=== PATIENT | female | born 1960 | race Caucasian/White ===

== ENCOUNTER → 2021-04-10 13:44 | Outpatient (CLI) | payer OTHER, SELFPAY ==
[2021-04-10 14:30] LABS: Add Manual Diff / Slide Review NO; Basophils Absolute Auto 0 /uL (0-100); Basophils Percent Auto 0.6 % (0-2); Eosinophils Absolute Auto 0 /uL (0-450); Hematocrit 37.9 % (36-46); Hemoglobin 12.6 g/dL (12.0-16.0); Lymphocytes Absolute Auto 1800 /uL (1100-4500); Lymphocytes Percent Auto 31.6 % (25-40); Mean Corpuscular HGB Conc 33.1 % (30-36); Mean Corpuscular Hemoglobin 31.8 PG (26-34); Mean Corpuscular Volume 95.8 fL (80-100); Monocytes Absolute Auto 500 /uL (0-900); Monocytes Percent Auto 8.7 % (3-14); Neutrophils Absolute Auto 3300 /uL (1500-7000); Neutrophils Percent Auto 59.1 % (50-75); Platelet Count 233 X10^3/uL (150-400); Red Blood Cell Count 3.96 X10^6/uL (4.0-5.2); Red Cell Distribution Width 13.6 % (11.6-14.8); White Blood Cell Count 5.6 X10^3/uL (4.5-11.0)
[2021-04-10 15:02] LABS: Erythrocyte Sedimentation Rate 34 MM/HR (0-20)
[2021-04-10 15:33] LABS: Alanine Aminotransferase 18 IU/L (<35); Albumin 4.7 g/dL (3.5-5.0); Albumin Globulin Ratio 1.3 (1.0-2.8); Alkaline Phosphatase 67 U/L (38-126); Aspartate Aminotransferase 29 IU/L (14-36); BUN Creatinine Ratio 17.7 (6-22); Bilirubin Total 0.4 mg/dL (0.2-1.3); Blood Urea Nitrogen 11 mg/dL (7-17); Calcium 9.7 mg/dL (8.4-10.2); Carbon Dioxide 28 mmol/L (22-32); Chloride 102 mmol/L (98-107); Estimated Glomerular Filt Rate > 60.0 mL/min (>60); Globulin 3.7 g/dL (1.7-4.1); Glucose 89 mg/dL (80-110); HEMOLYSIS < 15 (0-50); Potassium 4.2 mmol/L (3.4-5.1); Sodium 138 mmol/L (137-145); Total Protein 8.4 g/dL (6.3-8.2)
== END ==
PROVIDERS: PCP Nurse Practitioner; Referring Provider Physician Assistant Medical; Visit Provider Physician Assistant Medical
DX: M05.79 Rheumatoid arthritis with rheumatoid factor of multiple sites without organ or systems involvement (principal)
CPT/HCPCS: 36415; 80053; 85025; 85651; 86140

== ENCOUNTER 2022-02-13 17:46 | Emergency (ER) | payer OTHER, SELFPAY ==
[2022-02-13] VITALS (7 sets, daily range): BP systolic 158–177; BP diastolic 69–93; PULSE 70–74; RESP 18; TEMP 36.9; O2SAT 95–99; BMI 51.3
--- NOTE | 2022-02-13 17:56 | DI.CT.S_ITS ---
PROCEDURE: CT CERVICAL SPINE WO CON INDICATIONS: fall with upper neck pain, midline, bony tenderness TECHNIQUE: Noncontrast 3 mm thick sections acquired from the skull base to the T4 level. Sagittal and coronal reformats were then constructed. For radiation dose reduction, the following was used: automated exposure control, adjustment of mA and/or kV according to patient size. COMPARISON: None. FINDINGS: Image quality: Excellent. Bones: No fracture identified. Degenerative straightening of the usual cervical lordosis. Otherwise normal alignment. No facet subluxation, dislocation, widening. Interspinous distances are normal. Intervertebral disc spaces appear congruent. Normal craniocervical configuration. Soft tissues: Prevertebral soft tissues are normal in thickness. No paravertebral hematomas. No apical pneumothoraces. IMPRESSION: No CT evidence of acute traumatic cervical spine injury. Dictated by: Lamonte Villaseñor M.D. on 02/13/2022 at 18:19 Approved by: Lamonte Villaseñor M.D. on 02/13/2022 at 18:22
--- NOTE | 2022-02-13 17:56 | DI.CT.S_ITS ---
PROCEDURE: CT FACIAL BONES WO CON INDICATIONS: fall with head/face/neck injury TECHNIQUE: Noncontrast 2.5 mm thick axial images acquired from the mandible through the frontal sinuses, with coronal and sagittal reformatting. For radiation dose reduction, the following was used: automated exposure control, adjustment of mA and/or kV according to patient size. COMPARISON: None. FINDINGS: Image quality: Excellent. Bones and teeth: Orbital barron are intact. Sinus barron show no fracture or deformity. Nasal bones and septum are intact. Visualized portions of the mandible demonstrate no fractures or subluxation. Zygomatic arches are intact. Pterygoid plates are intact. Visualized portions of the skull base and auditory canals are intact. Sinuses: Paranasal sinuses are aerated, without fluid levels, mucosal thickening, or mucoceles. Mastoid air cells are aerated. Soft tissues: Left periorbital soft tissue swelling. Otherwise no edema, masses, or fluid collections. No enlarged lymph nodes. No soft tissue lacerations or debris. Vascular: Visualized vascular structures appear normal in the absence of contrast. Bony vascular foramina and canals are intact. IMPRESSION: No acute fracture. Left periorbital soft tissue swelling. Dictated by: Lamonte Villaseñor M.D. on 02/13/2022 at 18:24 Approved by: Lamonte Villaseñor M.D. on 02/13/2022 at 18:25
--- NOTE | 2022-02-13 17:56 | DI.CT.S_ITS ---
PROCEDURE: CT HEAD/BRAIN WO CON INDICATIONS: fall with head injury TECHNIQUE: Noncontrast 4.5 mm thick angled axial sections acquired from the foramen magnum to the vertex, with coronal and sagittal reformats. For radiation dose reduction, the following was used: automated exposure control, adjustment of mA and/or kV according to patient size. COMPARISON: [facility], CT, CT FACIAL BONES WO CON, 02/13/2022, 18:03. FINDINGS: Image quality: Excellent. CSF spaces: Basal cisterns are patent. No extra-axial fluid collections. The ventricles are symmetric in size and shape. Brain: No intracranial bleeds or masses. There is cerebral volume loss for age, with resultant ventricular and sulcal prominence. There are periventricular and deep white matter chronic small vessel ischemic changes. There is intracranial internal carotid artery atherosclerosis. Skull and face: Calvarium and visualized facial bones appear intact, without suspicious lesions. Sinuses: Visualized sinuses and mastoids are clear. IMPRESSION: No acute intracranial finding. Dictated by: Lamonte Villaseñor M.D. on 02/13/2022 at 18:23 Approved by: Lamonte Villaseñor M.D. on 02/13/2022 at 18:24
--- NOTE | 2022-02-13 17:56 | DI.RAD.S_ITS ---
PROCEDURE: XR FOOT LT MIN 3V INDICATIONS: fall with pain and swelling over lateral foot TECHNIQUE: 3 views of the foot were acquired. COMPARISON: [facility], , FOOT 3V LEFT, 07/30/2011, 13:31. FINDINGS: Comminuted, angulated, and displaced fractures of the distal 4th and 5th metatarsal diaphyses. Regional soft tissue swelling in the lateral forefoot. Remaining bones intact. IMPRESSION: Comminuted, angulated, and displaced fractures of the distal 4th and 5th metatarsal diaphyses. Dictated by: Lamonte Villaseñor M.D. on 02/13/2022 at 18:29 Approved by: Lamonte Villaseñor M.D. on 02/13/2022 at 18:30
--- NOTE | 2022-02-13 17:56 | DI.RAD.S_ITS ---
PROCEDURE: XR SHOULDER RT MIN 2V INDICATIONS: fall with shoulder pain TECHNIQUE: 3 views of the shoulder were acquired. COMPARISON: None. FINDINGS: No suspicious lytic or blastic osseous lesion. No acute fracture or dislocation identified. Regional soft tissues are normal. IMPRESSION: No evidence of fracture. Dictated by: Lamonte Villaseñor M.D. on 02/13/2022 at 18:30 Approved by: Lamonte Villaseñor M.D. on 02/13/2022 at 18:30
--- NOTE | 2022-02-13 17:58 | ED.FALL ---
HPI - Fall General Chief Complaint: Fall Stated Complaint: fell/hit head/face/right shoulder/chest/foot Time Seen by Provider: 02/13/22 17:56 History of Present Illness HPI Narrative: 61F nonsmoker with history of arthritis presents with a friend and the chief complaint of injuries suffered as the result of a fall just prior to her arrival. She was in her normal state of health prior to the fall and denies any prodromal symptoms such as dizziness, weakness, or lightheadedness. She was getting off a boat onto a dock and misjudged the landing and stumbled forward into a pole and struck her head and face and then fell to the ground. She does NOT take blood thinners and did not lose consciousness, but did get lightheaded for a bit. She denies N/V, chest pain or shortness of breath. She has no blurred or double vision, she has no trouble breathing through both nostrils and denies any facial numbness or tingling. She has severe pain of her right shoulder and complains of pain with movement, but denies numbness or tingling. She has minimal pain in anterior knees and pretty significant pain and swelling of left lateral foot without ankle involvement. Related Data Previous Rx's Medication Instructions Recorded cyclobenzaprine 10 mg tablet 10 mg PO TID PRN muscle spasm #14 02/13/22 tabs hydrocodone 5 mg-acetaminophen 325 1 tab PO Q4-6H PRN pain #10 tabs 02/13/22 mg tablet ondansetron 4 mg disintegrating 4 mg PO TID-QID PRN nausea and 02/13/22 tablet vomiting #10 tabs Allergies Allergy/AdvReac Type Severity Reaction Status Date / Time No Known Drug Allergies Allergy Verified 02/13/22 19:21 Review of Systems Review of Systems Narrative: GENERAL: Denies chills, fatigue, malaise, fever, sweats. HEENT: Denies sinus pain, ear pain, sore throat, difficulty swallowing, dizziness. RESPIRATORY: Denies dyspnea, cough, wheezing, hemoptysis, sputum. CARDIOVASCULAR: Denies chest pain, palpitations, orthopnea, edema, GASTROINTESTINAL: Denies nausea, vomiting, abdominal pain, diarrhea, constipation, melena. : Denies dysuria, frequency, incontinence, hematuria, urinary retention. MUSCULOSKELETAL: See HPI SKIN: Denies rash, skin lesions, or other NEUROLOGIC: Denies weakness, headache, numbness, change in speech, confusion, seizures, incoordination. PSYCHIATRIC: No concerning psychosocial issues. 12 point review of systems is negative except for those stated above Patient History Social History Smoking Status: Never smoker Exam Narrative Exam Narrative: GENERAL: [61] year old patient appears stated age. Well-developed patient, in mild distress. GCS 15 HEAD: no scalp contusion or laceration noted. Ecchymosis and tenderness just inferior and lateral to R eye. No obvious depressed skull fracture. EYES: Pupils equal round and reactive. No hyphema Extraocular motions intact. No scleral icterus. No injection or drainage. ENT: Nose without bleeding, purulent drainage. No nasal septal hematoma. Throat without erythema, tonsillar hypertrophy or exudate. Airway patent. NECK: Moderate midline bony tenderness in the mid to lower cervical as without crepitance or step-offs nor change with axial load. There is tenderness to palpation of the paraspinal musculature to the right as well. CARDIOVASCULAR: Regular rate and rhythm without murmurs, gallops, or rubs. RESPIRATORY: Clear to auscultation. Breath sounds equal bilaterally. No wheezes, rales, or rhonchi. GASTROINTESTINAL: Abdomen soft, non-tender, nondistended. EXTREMITIES: Patient has no involvement of left upper extremity. She has full but slightly painful range of motion of the right shoulder without obvious deformity. No pain in elbow or wrist. Cap refill and sensation intact. No pain on palpation of bilateral hips. She has minimal superficial abrasions to bilateral anterior knees without traumatic effusion, joint line tenderness or ligamentous laxity. No involvement of right ankle or foot. Patient is significantly tender in the left lateral foot with ecchymosis present. There is no pain on palpation of bony ankle, she has negative squeeze test. Again closed and neurovascularly intact BACK: Nontender without deformity or crepitance. No flank tenderness. NEURO: AOx3. SKIN: No rash or erythema of visible areas Initial Vital Signs Initial Vital Signs: Vital Signs Temperature 98.4 F 02/13/22 17:46 Pulse Rate 74 02/13/22 17:46 Respiratory Rate 18 02/13/22 17:46 Blood Pressure 177/84 H 02/13/22 17:46 Pulse Oximetry 99 02/13/22 17:46 Oxygen Delivery Method 02/13/22 17:46 Procedures Orthopedic Splinting/Casting Injury #1: Side: left Lower Extremity Injury Location: foot Lower Extremity Immobilizer: boot orthosis Other Orthopedic Equipment: crutches Post splinting neuro exam: intact Post splinting vascular exam: intact Course Orders Ordered: Discontinued Medications Hydrocodone Bitart/Acetaminophen (Hydrocodone/Acet 5/325 Prepack) 1 bottle MISC SEEINSTR ONE Stop: 02/13/22 19:07 Last Admin: 02/13/22 19:16 Dose: 1 bottle Documented By: DANNA Cyclobenzaprine HCl (Cyclobenzaprine 10 Mg Prepack) 1 bottle MISC SEEINSTR ONE Stop: 02/13/22 19:07 Last Admin: 02/13/22 19:16 Dose: 1 bottle Documented By: DANNA Ibuprofen (Ibuprofen 400 Mg Tablet) 400 mg PO NOW ONE Stop: 02/13/22 19:21 Last Admin: 02/13/22 19:24 Dose: 400 mg Documented By: DANNA Consultations Consultation #1: Discussed with on-call orthopedist, she has reviewed the case including images and recommends heel touch for balance, crutches and close follow-up Vital Signs Vital signs: Vital Signs - 8 hr 02/13/22 19:30 02/13/22 19:40 02/13/22 19:40 Pulse Rate 70 74 Blood Pressure 158/93 H Pulse Oximetry 95 99 MDM - Fall Imaging Data CT scan - head: Radiologist's Impression: Lizz Elder??61??F??1960 ? Allergy/Adv: Not Recorded Close Shoulder X-Ray 02/13/[address] (Signed) Lamonte Villaseñor - 02/13/22 Foot X-Ray 02/13/[address] (Signed) Lamonte Villaseñor - 02/13/[address] (Signed) Lamonte Villaseñor - 02/13/22 Launch?[address] [address] [address] Scan Report Signed Patient: Lizz Elder MR#: [id number] : 1960 Acct:[id number] Age/Sex: 61 / F Date of Service: 02/13/22 Loc: ED Accession Number: [id number] ?? Procedure: CT head/brain wo con Ordering Provider: Shady Parish D.O. PROCEDURE:? CT HEAD/BRAIN WO CON ? INDICATIONS:? fall with head injury ? TECHNIQUE:? Noncontrast 4.5 mm thick angled axial sections acquired from the foramen magnum to the vertex, with coronal and sagittal reformats.? For radiation dose reduction, the following was used:? automated exposure control, adjustment of mA and/or kV according to patient size.? ? COMPARISON:? [facility], CT, CT FACIAL BONES WO CON, 02/13/2022, 18:03. ? FINDINGS:? Image quality:? Excellent.? ? CSF spaces:? Basal cisterns are patent.? No extra-axial fluid collections.? The ventricles are symmetric in size and shape.? ? Brain:? No intracranial bleeds or masses.? There is cerebral volume loss for age, with resultant ventricular and sulcal prominence.? There are periventricular and deep white matter chronic small vessel ischemic changes.? There is intracranial internal carotid artery atherosclerosis.? ? Skull and face:? Calvarium and visualized facial bones appear intact, without suspicious lesions.? ? Sinuses:? Visualized sinuses and mastoids are clear.? ? IMPRESSION:? No acute intracranial finding. ? ? Dictated by: Lamonte Villaseñor M.D. on 02/13/2022 at 18:23 ? ? Approved by: Lamonte Villaseñor M.D. on 02/13/2022 at 18:24? CT - cervical spine: Radiologist's Impression: Lizz Elder??61??F??1960 ? Allergy/Adv: Not Recorded Close Shoulder X-Ray 02/13/[address] (Signed) Lamonte Villaseñor - 02/13/22 Foot X-Ray 02/13/[address] (Signed) Lamonte Villaseñor - 02/13/[address] (Signed) Lamonte Villaseñor - 02/13/22 Launch?Image [address] [address] [address] Scan Report Signed Patient: Lizz Elder MR#: [id number] : 1960 Acct:[id number] Age/Sex: 61 / F Date of Service: 02/13/22 Loc: ED Accession Number: [id number] ?? Procedure: CT head/brain wo con Ordering Provider: Shady Parish D.O. PROCEDURE:? CT HEAD/BRAIN WO CON ? INDICATIONS:? fall with head injury ? TECHNIQUE:? Noncontrast 4.5 mm thick angled axial sections acquired from the foramen magnum to the vertex, with coronal and sagittal reformats.? For radiation dose reduction, the following was used:? automated exposure control, adjustment of mA and/or kV according to patient size.? ? COMPARISON:? [facility], CT, CT FACIAL BONES WO CON, 02/13/2022, 18:03. ? FINDINGS:? Image quality:? Excellent.? ? CSF spaces:? Basal cisterns are patent.? No extra-axial fluid collections.? The ventricles are symmetric in size and shape.? ? Brain:? No intracranial bleeds or masses.? There is cerebral volume loss for age, with resultant ventricular and sulcal prominence.? There are periventricular and deep white matter chronic small vessel ischemic changes.? There is intracranial internal carotid artery atherosclerosis.? ? Skull and face:? Calvarium and visualized facial bones appear intact, without suspicious lesions.? ? Sinuses:? Visualized sinuses and mastoids are clear.? ? IMPRESSION:? No acute intracranial finding. ? ? Dictated by: Lamonte Villaseñor M.D. on 02/13/2022 at 18:23 ? ? Approved by: Lamonte Villaseñor M.D. on 02/13/2022 at 18:24? CT Facial Bones: Radiologist's Impression: Lizz Elder??61??F??1960 ? Allergy/Adv: Not Recorded Close Shoulder X-Ray (Signed) Lamonte Villaseñor - 02/13/[address] (Signed) Lamonte Villaseñor - 02/13/22 Foot X-Ray (Signed) Lamonte Villaseñor - 02/13/[address] (Signed) Lamonte Villaseñor - 02/13/[address] (Signed) Lamonte Villaseñor - 02/13/22 Launch?Image [address] [address] [address] Scan Report Signed Patient: Lizz Elder MR#: [id number] : 1960 Acct:[id number] Age/Sex: 61 / F Date of Service: 02/13/22 Loc: ED Accession Number: [id number] ?? Procedure: CT facial bones wo con Ordering Provider: Shady Parish D.O. PROCEDURE:? CT FACIAL BONES WO CON ? INDICATIONS:? fall with head/face/neck injury ? TECHNIQUE:? Noncontrast 2.5 mm thick axial images acquired from the mandible through the frontal sinuses, with coronal and sagittal reformatting.? For radiation dose reduction, the following was used:? automated exposure control, adjustment of mA and/or kV according to patient size.? ? COMPARISON:? None. ? FINDINGS:? Image quality:? Excellent.? ? Bones and teeth:? Orbital barron are intact.? Sinus barron show no fracture or deformity.? Nasal bones and septum are intact.? Visualized portions of the mandible demonstrate no fractures or subluxation.? Zygomatic arches are intact.? Pterygoid plates are intact.? Visualized portions of the skull base and auditory canals are intact.? ? Sinuses:? Paranasal sinuses are aerated, without fluid levels, mucosal thickening, or mucoceles.? Mastoid air cells are aerated.? ? Soft tissues:? Left periorbital soft tissue swelling.? Otherwise no edema, masses, or fluid collections.? No enlarged lymph nodes.? No soft tissue lacerations or debris.? ? Vascular:? Visualized vascular structures appear normal in the absence of contrast.? Bony vascular foramina and canals are intact.? ? IMPRESSION:? No acute fracture.? Left periorbital soft tissue swelling. ? ? Dictated by: Lamonte Villaseñor M.D. on 02/13/2022 at 18:24 ? ? Approved by: Lamonte Villaseñor M.D. on 02/13/2022 at 18:25 Discharge Plan Departure Patient Disposition: Home Clinical Impression: Foot fracture, left, Contusion of face, Acute pain of right shoulder Instructions: DI for Foot Fracture, How to Prevent Falls Activity Restrictions/Additional Instructions: *You have been diagnosed with [fall with multiple injuries, most notably fractures of your left foot. As we discussed these are not likely to require surgical intervention, after speaking with Orthopedics they recommend the use of a boot, weight-bearing on your heel only and use of crutches close follow-up with her office. Info is listed below] *What to do: *Please continue to take your regular medications as directed. [x ] New medication prescriptions sent to your pharmacy: [[facility] in [place] ] [ ] New medication written as a paper prescription [x] Tylenol and occasional Motrin for pain *Please follow up with [ Caroline] of [facility] in 2-3 days, call for an appointment. Let them know you were seen in the Emergency Department and that we ask that you be seen in follow up. We will electronically transmit a record of today's note if your PCP is in our system *Return to Emergency Department if you should have any new, worsening or concerning symptoms, such as [worsening pain, significant swelling, cold extremities, numbness, tingling, weakness or other bothersome symptoms *Minimal weight bearing to heel touch with uses of crutches Prescriptions: New cyclobenzaprine 10 mg tablet 10 mg PO TID PRN (Reason: muscle spasm) Qty: 14 0RF hydrocodone-acetaminophen 5-325 mg tablet 1 tab PO Q4-6H PRN (Reason: pain) Qty: 10 0RF ondansetron 4 mg tablet,disintegrating 4 mg PO TID-QID PRN (Reason: nausea and vomiting) Qty: 10 0RF Referrals: Imani Boykin ARNP [Primary Care Provider] - Payton Velazquez MD [Physician] - Visit Report Forms: Patient Portal/API
[2022-02-13] MEDS: HYDROCODONE/ACET 5/325 PREPACK 1 BOTTLE MISC (19:16)
[2022-02-13] MEDS: CYCLOBENZAPRINE 10 MG PREPACK 1 BOTTLE MISC (19:16)
[2022-02-13] MEDS: IBUPROFEN 400 MG TABLET PO (19:24)
== END 2022-02-13 19:58 | disposition home or self-care (01) ==
PROVIDERS: Emergency Provider Emergency Medicine; PCP Nurse Practitioner
DX: S92.342A Displaced fracture of fourth metatarsal bone, left foot, initial encounter for closed fracture (principal); S92.352A Displaced fracture of fifth metatarsal bone, left foot, initial encounter for closed fracture; S00.83XA Contusion of other part of head, initial encounter; R42 Dizziness and giddiness; M25.511 Pain in right shoulder; W19.XXXA Unspecified fall, initial encounter
CPT/HCPCS: 70450; 70486; 72125; 73030; 73630; 99284

== ENCOUNTER → 2022-04-12 17:25 | Outpatient (CLI) | payer OTHER, SELFPAY ==
[2022-04-12 17:49] LABS: Add Manual Diff / Slide Review NO; Basophils Absolute Auto 0 /uL (0-100); Basophils Percent Auto 0.5 % (0-2); Eosinophils Absolute Auto 0 /uL (0-450); Hematocrit 34.5 % (36-46); Hemoglobin 11.8 g/dL (12.0-16.0); Lymphocytes Absolute Auto 1800 /uL (1100-4500); Lymphocytes Percent Auto 37.7 % (25-40); Mean Corpuscular HGB Conc 34.3 % (30-36); Mean Corpuscular Hemoglobin 32.5 PG (26-34); Mean Corpuscular Volume 94.8 fL (80-100); Monocytes Absolute Auto 400 /uL (0-900); Monocytes Percent Auto 8.1 % (3-14); Neutrophils Absolute Auto 2600 /uL (1500-7000); Neutrophils Percent Auto 53.7 % (50-75); Platelet Count 231 X10^3/uL (150-400); Red Blood Cell Count 3.63 X10^6/uL (4.0-5.2); Red Cell Distribution Width 13.6 % (11.6-14.8); White Blood Cell Count 4.8 X10^3/uL (4.5-11.0)
[2022-04-12 18:06] LABS: Alanine Aminotransferase 18 IU/L (<35); Albumin 4.5 g/dL (3.5-5.0); Albumin Globulin Ratio 1.1 (1.0-2.8); Alkaline Phosphatase 73 U/L (38-126); Aspartate Aminotransferase 23 IU/L (14-36); BUN Creatinine Ratio 16.5 (6-22); Bilirubin Total 0.3 mg/dL (0.2-1.3); Blood Urea Nitrogen 14 mg/dL (7-17); Calcium 9.1 mg/dL (8.4-10.2); Carbon Dioxide 30 mmol/L (22-32); Chloride 99 mmol/L (98-107); Estimated Glomerular Filt Rate > 60 mL/min (>60); Globulin 4.2 g/dL (1.7-4.1); Glucose 95 mg/dL (80-110); HEMOLYSIS < 15 (0-50); Potassium 4.1 mmol/L (3.4-5.1); Sodium 136 mmol/L (137-145); Total Protein 8.7 g/dL (6.3-8.2)
[2022-04-12 18:57] LABS: Erythrocyte Sedimentation Rate 37 MM/HR (0-20)
== END ==
PROVIDERS: PCP Nurse Practitioner; Referring Provider Physician Assistant Medical; Visit Provider Physician Assistant Medical
DX: M05.79 Rheumatoid arthritis with rheumatoid factor of multiple sites without organ or systems involvement (principal)
CPT/HCPCS: 36415; 80053; 85025; 85651; 86140